=== PATIENT | female | born 1970 ===

== ENCOUNTER 2018-08-17 21:43 | Emergency (ER) | payer MEDICAID ==
[~2018-08-17] VITALS: Ht 162.6 cm; Wt 63.5 kg
[2018-08-17 23:01] VITALS: BP 134/84
--- NOTE | 2018-08-17 23:01 | NUR ---
Patient discharged to home in stable conditon. Written and verbal after care instructions given. Patient verbalizes understanding of instructions. Pt ambulated out of ER via crutches with daughter. All belongings with pt. VSS. NAD noted.
== END 2018-08-17 23:02 | disposition home or self-care (01) ==
LOC: ER 21:46
DX: S82.831A Other fracture of upper and lower end of right fibula, initial encounter for closed fracture (principal); F17.200 Nicotine dependence, unspecified, uncomplicated; X50.1XXA Overexertion from prolonged static or awkward postures, initial encounter; Y93.51 Activity, roller skating (inline) and skateboarding; Y92.89 Other specified places as the place of occurrence of the external cause; Y99.8 Other external cause status
CPT/HCPCS: 73590; 73610; 73630; A4663